=== PATIENT | female | born 1995 | race African-American/Black ===

== ENCOUNTER 2017-01-26 11:47 | Emergency (ER) | payer OTHER ==
[~2017-01-26] VITALS: Ht 175.3 cm; Wt 118.0 kg
[~2017-01-26 11:47] MED LIST: LAMO25 PO; LEVE500 PO
[2017-01-26 11:48] VITALS: BP 131/84; PULSE 99; RESP 20; TEMP 99.5; O2SAT 98
--- NOTE | 2017-01-26 12:03 | PD ---
HPI Chief Complaint: Cold / Flu Symptoms Time Seen by Provider: 11:55 Travel History International Travel<30 days: No Contact w/Intl Traveler<30days: No Traveled to known affect area: No History of Present Illness HPI 21-year-old female here for evaluation. For the past 2 days she has had a sore throat, cough, congestion, bilateral ear pressure. She reports that she is not developing a headache as well as discomfort in her chest when she coughs. The cough is moist and productive. She took some Tylenol yesterday for her symptoms. Denies fevers, chills, rash, recent travel. She reports that she works at [employer] in [place] so she has been around several patients with cough and cold symptoms recently. She has no other complaints at this time. [facility] Past Medical History Anemia: Yes Blood Disorders: No (anemia) Cancer: No Cardiovascular Problems: No Diminished Hearing: No Endocrine: No Genitourinary: No Immune Disorder: No Musculoskeletal: No Neurologic: No Psychiatric: No Respiratory: No Immunizations Current: Yes Seizures: Yes : 1 Para: 0 Miscarriage: 1 Past Surgical History Other Surgery: No Social History Alcohol Use: No Tobacco Use: No Substance Use: No Allergies-Medications (Allergen,Severity, Reaction): Coded Allergies: No Known Allergies (Verified Adverse Reaction, Unknown, 01/26/17) Reported Meds & Prescriptions Reported Meds & Active Scripts Active Tessalon Perles (Benzonatate) 100 Mg Cap 200 Mg PO TID PRN Flonase Nasal Peculiar (Fluticasone Nasal Peculiar) 50 Mcg/Act Peculiar 100 Mcg EACH NARE BID 10 Days Lamictal (Lamotrigine) 25 Mg Tab 50 Mg PO HS Reported Vitamin D3 (Cholecalciferol) 1,000 Unit Cap 1,000 Units PO DAILY Iron (Ferrous Sulfate) 325 Mg Cap 325 Mg PO DAILY Keppra (Levetiracetam) 500 Mg Tab 500 Mg PO BID Review of Systems Except as stated in HPI: all other systems reviewed are Neg Physical Exam Narrative GENERAL: Well-developed well-nourished female in no acute distress SKIN: Warm and dry. HEAD: Atraumatic. Normocephalic. EYES: Pupils equal and round. No scleral icterus. No injection or drainage. ENT: No nasal bleeding or discharge. Mucous membranes pink and moist. No erythema or bulging of the hepatic membranes. There appears to be mild air- fluid levels bilaterally. There is slight oropharyngeal erythema without exudate. Uvula midline with no mass effect. NECK: Trachea midline. No JVD. No lymphadenopathy. CARDIOVASCULAR: Regular rate and rhythm. No murmur appreciated. RESPIRATORY: No accessory muscle use. Clear to auscultation. Breath sounds equal bilaterally. No crackles no wheezing or rhonchi Data Data Last Documented VS Vital Signs Date Time Temp Pulse Resp B/P (MAP) Pulse Ox O2 Delivery O2 Flow Rate FiO2 01/26/17 11:48 99.5 99 20 131/84 (100) 98 Room Air Orders Orders Influenzae A/B Antigen (01/26/17 12:00) Group A Rapid Strep Screen (01/26/17 12:00) Strep Culture (Group A) (01/26/17 12:35) Ed Discharge Order (01/26/17 13:17) MDM Medical Decision Making Medical Screen Exam Complete: Yes Emergency Medical Condition: Yes Medical Record Reviewed: Yes Differential Diagnosis Eustachian tube dysfunction, rhinitis, tonsillitis, sinusitis, bronchitis, pneumonia, influenza, pharyngitis Narrative Course 21-year-old female here with 2 days of cough and cold symptoms. Her lungs sound clear to auscultation. Plan is for influenza antigen rapid strep screen. Rapid strep screen and influenza antigen are negative. She appears to have an upper respiratory infection with eustachian tube dysfunction. She is being discharged with Flonase and Tessalon prescriptions. Diagnosis Primary Impression: Upper respiratory infection Qualified Codes: J06.9 - Acute upper respiratory infection, unspecified Additional Impression: Eustachian tube dysfunction Qualified Codes: H69.83 - Other specified disorders of eustachian tube, bilateral Additional Instructions: Medication as needed. Stay well hydrated well-nourished. Can use over-the- counter cough suppressants and nasal decongestants. Return for any emergent medical conditions. Med/Other Pt SpecificInfo: Prescription(s) given Scripts Benzonatate (Tessalon Perles) 100 Mg Cap 200 MG PO TID Y for COUGH, #20 CAP 0 Refills Prov: Tarun Doan MD 01/26/17 Fluticasone Nasal Peculiar (Flonase Nasal Peculiar) 50 Mcg/Act Peculiar 100 MCG EACH NARE BID for Allergies for 10 Days, #1 BOTTLE 0 Refills Prov: Tarun Doan MD 01/26/17 Disposition: 01 DISCHARGE HOME Condition: Stable Ravi Carlson Jan 26, 2017 12:03
[2017-01-26] MEDS ORDERED: CHOL10008 PO (12:27)
[2017-01-26] MEDS ORDERED: FERR325C PO (12:27)
[2017-01-26] MEDS ORDERED: FLUT1SPR5 EACH NARE (13:17)
[2017-01-26] MEDS ORDERED: BENZ100 PO (13:17)
== END 2017-01-26 13:33 | disposition home or self-care (01) ==
LOC: NEPK 11:47
DX: J06.9 Acute upper respiratory infection, unspecified (principal); H83.2X3 Labyrinthine dysfunction, bilateral; D64.9 Anemia, unspecified; R56.9 Unspecified convulsions; Z79.899 Other long term (current) drug therapy
CPT/HCPCS: 87081; 87804; 87880; 99283